=== PATIENT | female | born 1985 | race Caucasian/White ===

== ENCOUNTER → 2018-07-06 08:42 | Outpatient (CLI) | payer OTHER, SELFPAY ==
[2018-07-06 09:47] LABS: Add Manual Diff / Slide Review NO; Basophils Absolute Auto 0 /uL (0-100); Basophils Percent Auto 0.6 % (0-2); Eosinophils Absolute Auto 0 /uL (0-450); Eosinophils Percent Auto 0.6 % (2-4); Hematocrit 35.3 % (36-46); Hemoglobin 11.8 g/dL (12.0-16.0); Lymphocytes Absolute Auto 800 /uL (1100-4500); Lymphocytes Percent Auto 15.7 % (25-40); Mean Corpuscular HGB Conc 33.3 % (30-36); Mean Corpuscular Hemoglobin 30.5 PG (26-34); Mean Corpuscular Volume 91.3 fL (80-100); Monocytes Absolute Auto 500 /uL (0-900); Monocytes Percent Auto 9.2 % (3-14); Neutrophils Absolute Auto 3900 /uL (1500-7000); Neutrophils Percent Auto 73.9 % (50-75); Platelet Count 182 X10^3/uL (150-400); Red Blood Cell Count 3.87 X10^6/uL (4.0-5.2); Red Cell Distribution Width 13.7 % (11.6-14.8); White Blood Cell Count 5.3 X10^3/uL (4.5-11.0)
[2018-07-06 10:06] LABS: Appearance Urine UA CLEAR; Bilirubin Urine UA NEGATIVE (NEGATIVE); Color Urine UA YELLOW; Glucose Urine UA NEGATIVE (Negative); Ketones Urine UA NEGATIVE (NEGATIVE); Leukocyte Esterase Urine UA NEGATIVE (NEGATIVE); Nitrite Urine UA NEGATIVE (Negative); Occult Blood Urine UA NEGATIVE (Negative); Protein Urine UA NEGATIVE (Negative); Specific Gravity Urine UA 1.025 (1.000-1.035); pH Urine UA 7.5 (4.5-8.0)
[2018-07-06 10:43] LABS: Hepatitis B Surface Antigen NEGATIVE s/c (NEGATIVE)
[2018-07-06 11:03] LABS: HIV 1 and 2 Antibody NEGATIVE (NEGATIVE); Hep C Virus Ab w/Reflex Quant NEGATIVE s/c (NEGATIVE)
[2018-07-08 10:39] LABS: RPR Screen Nonreactive (Nonreactive)
== END ==
PROVIDERS: Visit Provider Specialist
DX: Z34.81 Encounter for supervision of other normal pregnancy, first trimester (principal)
CPT/HCPCS: 80055; 81003; 86703; 86787; 86803; 86850; 86900; 86901; 87086

== ENCOUNTER → 2018-09-26 08:53 | Outpatient (CLI) | payer OTHER, SELFPAY ==
--- NOTE | 2018-09-26 08:54 | DI.US.S_ITS ---
PROCEDURE: US OB >= 14 WEEKS FETUS INDICATIONS: ANATOMY SCAN OUTSIDE/PRIOR DATING DATA: Last menstrual period (LMP): 05/08/18. LMP-based estimated date of delivery (MARIO): 02/12/19. First dating scan (date and location): 07/06/[address] Webber. Estimated date of delivery (MARIO) from first dating scan: 02/14/19, by Dr. Webber. TECHNIQUE: Real-time scanning was performed of the fetus, with image documentation and biometric measurements. Endovaginal scanning: Not needed for this study COMPARISON: [facility], , OB >= 14 WEEKS FETUS, 09/05/2018, 11:46. [facility], , OB >= 14 WEEKS FETUS, 08/03/2018, 16:07. FINDINGS: General: A single living intrauterine gestation is present. Presentation: The presentation is variable at this time. Placenta: Placental position is anterior, without previa. Amniotic fluid index: 15.1 cm, normal range is 5-24 cm. heart rate: 149 beats per minute. Maternal cervical canal: 4.9 cm long. Normal lower limit is 2.5 cm. biometrics: Biparietal diameter: 4.6 cm, 19 weeks 5 days Head circumference: 17.1 cm, 19 weeks 5 days Abdominal circumference: 14.3 cm, 19 weeks 5 days Femur length: 3.3 cm, 20 weeks 3 days Estimated gestational age from initial scan: 19 weeks 6 days Composite gestational age from present scan: 19 weeks 6 days Estimated weight and percentile: 324 g, 52nd percentile Measurement variability for biometric dating: +/- 7 days from 14 weeks to 15 weeks 6 days gestation, +/- 10 days from 16 weeks to 21 weeks 6 days gestation, +/- 2 weeks from 22 weeks to 27 weeks 6 days gestation, +/- 3 weeks for 28 weeks gestation or later. weight reference: 4500 g or EFW >90/95% is considered macrosomia or large for gestational age. EFW <10% is small for gestational age. EFW 5% or less is considered intra-uterine growth restriction. Anatomic survey: Neuro: Ventricles are non-dilated at less than 10 mm. Cisterna magna is normal at 3-11 mm. Cerebellum is normal in size and morphology. Nuchal skin fold: Normal at less than 6 mm between 14-21 weeks gestational age. Face: Nose and lips, facial profile are normal. Spine: No evidence for spina bifida. Heart: 4-chambered heart is present, with normal ventricular outflow tracts. Diaphragm: Diaphragm is intact. Stomach: Left-sided stomach is present. Kidneys: No hydronephrosis. Normal is less than 5 mm in 2nd trimester, less than 7 mm in 3rd trimester. Cord: 3-vessel cord has orthotopic insertion. Bladder: Normal in size. Extremities: All 4 extremities identified. IMPRESSION: Single living intrauterine gestation with the delivery projected to be centered on 02/14/19, plus or -5 days, based on the first OB ultrasound by Dr. Webber. Dictated by: Miki Dotson M.D. on 09/26/2018 at 14:06 Approved by: Miki Dotson M.D. on 09/26/2018 at 14:10
== END ==
PROVIDERS: PCP Family Medicine; Visit Provider Specialist
DX: Z34.82 Encounter for supervision of other normal pregnancy, second trimester (principal); Z3A.19 19 weeks gestation of pregnancy
CPT/HCPCS: 76811

== ENCOUNTER → 2018-11-09 10:49 | Outpatient (CLI) | payer OTHER, SELFPAY ==
[2018-11-09 12:19] LABS: Hematocrit 32.1 % (36-46); Hemoglobin 11.2 g/dL (12.0-16.0)
[2018-11-09 13:02] LABS: GTT (PREG) 1 Hour PP 50gm Dose 119 mg/dL (76-139)
== END ==
PROVIDERS: PCP Family Medicine; Visit Provider Specialist
DX: Z34.82 Encounter for supervision of other normal pregnancy, second trimester (principal)
CPT/HCPCS: 36415; 82950; 85014; 85018

== ENCOUNTER → 2019-01-18 16:07 | Outpatient (CLI) | payer OTHER, SELFPAY ==
[2019-01-19 14:18] LABS: Strep Grp B PCR NEG for Grp B Strep
== END ==
PROVIDERS: PCP Family Medicine; Visit Provider Specialist
DX: Z34.83 Encounter for supervision of other normal pregnancy, third trimester (principal); Z3A.36 36 weeks gestation of pregnancy
CPT/HCPCS: 87653

== ENCOUNTER 2019-01-30 05:48 | Inpatient (IN) | payer OTHER, SELFPAY ==
[2019-01-30 07:08] VITALS: BP 137/87
[2019-01-30 07:09] LABS: Add Manual Diff / Slide Review NO; Basophils Absolute Auto 100 /uL (0-100); Basophils Percent Auto 0.7 % (0-2); Eosinophils Absolute Auto 100 /uL (0-450); Eosinophils Percent Auto 0.7 % (2-4); Hematocrit 34.6 % (36-46); Hemoglobin 11.7 g/dL (12.0-16.0); Lymphocytes Absolute Auto 1700 /uL (1100-4500); Lymphocytes Percent Auto 17.1 % (25-40); Mean Corpuscular HGB Conc 33.9 % (30-36); Mean Corpuscular Hemoglobin 30.7 PG (26-34); Mean Corpuscular Volume 90.6 fL (80-100); Monocytes Absolute Auto 700 /uL (0-900); Monocytes Percent Auto 7.3 % (3-14); Neutrophils Absolute Auto 7500 /uL (1500-7000); Neutrophils Percent Auto 74.2 % (50-75); Platelet Count 279 X10^3/uL (150-400); Red Blood Cell Count 3.82 X10^6/uL (4.0-5.2); White Blood Cell Count 10.1 X10^3/uL (4.5-11.0)
--- NOTE | 2019-01-30 07:59 | P.HPOB_ITS ---
OB HPI Date/Time Date of admission: 01/30/19 Date Patient Seen: 01/30/19 Time Patient Seen: 07:59 History of Present Condition Chief complaint: evaluation of labor : 4 Para: 1 Estimated Date of Delivery: 02/12/19 Estimated Gestational Age (weeks): 38 Narrative: Josselyn Pearson is a 33 year old female admitted with spontaneous rupture membranes History of Present care: good care, initiated at week # (8), number of visits (10) and po unds weight gain (28) Dating criteria: LMP confirmed by 1st trimester US Ultrasounds: normal mid trimester US Obstetrical complications: none Medical complications: none Preadmission Labs Blood type: A (+) positive -: Antibody screen: negative, GBS status: negative, HBsAG: negative, HIV: negative, HSV 1: positive and RPR/VDLR: negative -: Chlamydia screen: not detected and Gonorrhea screen: not detected -: Rubella: immune and Varicella: immune 1 hr GTT: 119 Prior (ies) History: 07/18/2015 spontaneous vaginal delivery 38 weeks female 8 lb 6 oz, epidural catheter Evaluation Evaluation Baseline heart rate: 140 Variability: Moderate (11-25) monitor accelerations: Present monitor decelerations: Episodic Contraction Frequency (minutes): 8 Uterine Contraction Intensity: Mild Category of Tracing: II Cervical dilation (cm): 4 Cervical effacement (%): 80 station: -2 Laboratory results: Laboratory Tests 01/30/19 01/30/19 06:15 06:15 WBC 10.1 RBC 3.82 L Hgb 11.7 L Hct 34.6 L MCV 90.6 MCH 30.7 MCHC 33.9 RDW 14.0 Plt Count 279 Neut % (Auto) 74.2 Lymph % (Auto) 17.1 L Rapides % (Auto) 7.3 Eos % (Auto) 0.7 L Baso % (Auto) 0.7 Neut # (Auto) 7500 H Lymph # (Auto) 1700 [place] # (Auto) 700 Eos # (Auto) 100 Baso # (Auto) 100 Blood Type A Positive Antibody Screen Negative [facility] Medical History (Updated 11/24/18 @ 11:40 by Yuliet Webber MD) Vaginal delivery (Inactive) Social History Smoking Status: Never smoker Meds Home Medications and Allergies Home Medications Medication Instructions Recorded Confirmed Type Double Electric breast Pump and #1 each 10/20/18 Rx Supplies Allergies Allergy/AdvReac Type Severity Reaction Status Date / Time No Known Drug Allergies Allergy Verified 01/30/19 07:07 Review of Systems Review of Systems Narrative: Patient denies headaches, scotomata, epigastric pain. No abdominal pain. Spontaneous rupture membranes initially pink-tinged then passing blood clots. Good movement. Mild contractions. ROS Unobtainable: All systems reviewed & are unremarkable except as noted in HPI and below Exam Vital Signs (past 8 hours): - 01/30/19 07:08 Blood Pressure 137/87 Narrative Exam Narrative: HEENT exam within normal limits. Lungs are clear to auscultation percussion. Heart is regular rate and rhythm no S3-S4 or murmurs. Abdomen is gravid. Fetus is vertex. Extremities without edema and nontender. Slightly more than normal bleeding. Objective Labs Result Diagrams: 01/30/19 06:15 Labs: Laboratory Results - last 24 hr 01/30/19 01/30/19 06:15 06:15 WBC 10.1 RBC 3.82 L Hgb 11.7 L Hct 34.6 L MCV 90.6 MCH 30.7 MCHC 33.9 RDW 14.0 Plt Count 279 Neut % (Auto) 74.2 Lymph % (Auto) 17.1 L Rapides % (Auto) 7.3 Eos % (Auto) 0.7 L Baso % (Auto) 0.7 Neut # (Auto) 7500 H Lymph # (Auto) 1700 [place] # (Auto) 700 Eos # (Auto) 100 Baso # (Auto) 100 Blood Type A Positive Antibody Screen Negative Assessment and Plan Assessment and Plan Assessment and Plan narrative: 38 week gestation with spontaneous rupture membranes with slightly more than average bleeding not in active labor. Possible mild abruption will be monitored carefully for worsening abruption signs. Anticipate vaginal delivery at this time.
[2019-01-30] MEDS: OXYTOCIN PREMIX 30 UNIT/500 ML PLAST..BAG IV (12:14)
--- NOTE | 2019-01-30 18:33 | PM.OBPRVD ---
Labor & Delivery Delivery date: 01/30/19 Intrapartal events: None Delivery augmentation: pitocin Delivery monitor: external FHT and external uterine Route of delivery: L&D Laceration Description: Perineal - 1st Degree Delivery repair: chromic (3-0) Estimated blood loss (mL): 200 Anesthesia type: Epidural Narrative: Patient arrived on Labor and delivery with spontaneous rupture membranes. She did have some significant bleeding. heart tones category 1 to category 2 throughout labor. The patient did not go into active labor so Pitocin augmentation was started. Patient received an epidural catheter for pain control. She delivered spontaneously, over an intact perineum. There was a cord over the shoulder that was somewhat tight. was placed on maternal abdomen. After the cord stopped pulsating the cord was clamped, cut, and cord bloods obtained. The placenta delivered spontaneously, intact, with 3 vessels. No specific evidence of abruption. There were no cervical or vaginal tears. A first-degree perineal tear was repaired with 3 0 chromic suture. Both mother doing well. Baby weighed 6 lb 13 oz. Hope Baby 1: Infant gender: Female position: Right Occiput Anterior Placenta delivery description: Spontaneous cord vessel description: 3 Vessels score (1 min): 6 score (5 min): 9 Plan for aftercare: Routine care
[2019-01-30] MEDS: IBUPROFEN 600 MG TABLET PO (21:24)
[2019-01-30] MEDS: LANOLIN OINT 7 GM 1 APPLIC TOP (21:25)
[2019-01-31] MEDS: IBUPROFEN 600 MG TABLET PO ×2 (04:43→11:06)
[2019-01-31 06:17] LABS: Hematocrit 29.1 % (36-46); Hemoglobin 9.7 g/dL (12.0-16.0)
--- NOTE | 2019-01-31 09:39 | P.DS_ITS ---
Discharge Providers Provider Date of admission: 01/30/19 05:48 Discharge Date: 01/31/19 Primary care physician: Alma Qureshi MD Consults: 01/30/19 06:29 Consult to Anesthesiology Urgent Comment: Consulting Provider: Anesthesiologist Reason for consultation: Epidural Has provider been notified: No 01/31/19 18:28 Consult to Porcelain En[employer] Repairer Routine Comment: Discharge provider: Yuliet Webber MD Summary Hospital Course Date Patient Seen: 01/31/19 Time Patient Seen: 09:42 Hospital Course: Patient arrived on Labor and delivery with spontaneous rupture membranes. She received Pitocin augmentation of labor. She had an epidural catheter for pain control. She had a spontaneous vaginal delivery of a viable female infant weighing 6 lb 13 oz. First-degree perineal tear was repaired. Both and mother did well . Patient is without difficulty. No signs or symptoms of preeclampsia. Patient is Rh positive and rubella immune. She will be offered Tdap again prior to discharge. Peripartum Data Delivery Method: Natural Vaginal Laceration description: Perineal - 1st Degree Procedures: Pitocin augmentation of labor, epidural catheter, spontaneous vaginal delivery, repair of first-degree perineal laceration complications: none 1: Gender: Female Disposition of : home Discharge Diagnosis (1) Anemia associated with acute blood loss: Status: Resolved (2) Vaginal delivery: Status: Acute Status at Discharge Cognitive/behavioral status at discharge: oriented Functional status at discharge: independent ambulation Overall status at discharge: patient is progressing back to baseline Time Spent with Patient Time attestation: Total time spent providing and/or coordinating discharge services: Time spent: Less than 30 minutes Objective Labs Result Diagrams: 01/31/19 06:00 Labs: Laboratory Results - last 24 hr 01/31/19 06:00 Hgb 9.7 L Hct 29.1 L Exam Vital Signs (past 8 hours): Blood pressure 112/68, pulse 75, temperature 98.6? Narrative Exam Narrative: Abdomen is soft, nontender. Uterus is firm, at U, nontender. Minimal lochia. Extremities without edema and nontender. Discharge Plan Discharge Plan Patient Disposition: Home Discharge orders & Medications Prescriptions: New docusate sodium [DOK] 100 mg Capsule 100 mg PO DAILY Qty: 30 RF: 0 ibuprofen 600 mg Tablet 600 mg PO Q6HR PRN (Reason: Pain, Mild (1-3)) Qty: 30 RF: 0 ferrous gluconate 324 mg (38 mg iron) tablet 324 mg PO DAILY Qty: 30 RF: 0 Continued Double Electric breast Pump and Supplies package See Rx Instructions .ROUTE .COMPLEX RF: 0 Classic 28 mg iron- 800 mcg Tablet See Rx Instructions .ROUTE .COMPLEX RF: 0 Follow up/Referrals: Yuliet Webber MD [Physician] - 1 Month Alma Qureshi MD [Primary Care Provider] - Visit Report/Discharge Packet Stand Alone Forms: Discharge: Care Discharge Data Primary Care Provider: Alma Qureshi
[2019-01-31] MEDS: DOCUSATE 100 MG CAPSULE PO (11:06)
[2019-01-31 12:57] VITALS: BP 137/87
== END 2019-01-31 14:50 | disposition home or self-care (01) | DRG 806 ==
PROVIDERS: Admitting Provider Specialist; PCP Family Medicine; Visit Provider Specialist
DX: O70.0 First degree perineal laceration during delivery (principal); D62 Acute posthemorrhagic anemia; Z37.0 Single live birth; Z3A.38 38 weeks gestation of pregnancy
CPT/HCPCS: 01967; 36415; 59050; 59400; 85014; 85018; 85025; 86850; 86900; 86901; G0379; J2590